=== PATIENT | male | born 1955 | race Caucasian/White ===

== ENCOUNTER 2017-11-13 23:28 | Emergency (ER) | payer MEDICAID ==
--- NOTE | 2017-11-14 00:56 | EDM.PDOC ---
ED HPI GENERAL MEDICAL PROBLEM - General Chief Complaint: Fever Stated Complaint: FEVER Time Seen by Provider: 11/14/17 00:46 Source of Information: Reports: Patient, Family, RN Notes Reviewed History Limitations: Reports: No Limitations - History of Present Illness INITIAL COMMENTS - FREE TEXT/NARRATIVE: 61-year-old gentleman presents emergency department today concern of fever, he was recently diagnosed with Lyme was started on doxycycline however earlier today he had a fever up to 103 by the time he reports to the emergency department his temperature is now 100.4 this after taking some Sarah aspirin he has no other complaints was mainly just concerned - Related Data Allergies Allergy/AdvReac Type Severity Reaction Status Date / Time No Known Allergies Allergy Verified 11/14/17 00:18 Home Meds: Home Meds Doxycycline [Doxycycline Hyclate] 50 mg PO Q12HR 11/14/17 [History] Rivaroxaban [Xarelto] 20 mg PO DAILY 11/14/17 [History] Past Medical History Cardiovascular History: Reports: Blood Clots/VTE/DVT Hematologic History: Reports: Other (See Below) Other Hematologic History: factor 5 - Infectious Disease History Infectious Disease History: Reports: Chicken Pox Social & Family History - Family History Family Medical History: Noncontributory - Tobacco Use Smoking Status *Q: Never Smoker - Caffeine Use Caffeine Use: Reports: None - Recreational Drug Use Recreational Drug Use: No ED ROS GENERAL - Review of Systems Review Of Systems: See Below Constitutional: Reports: Fever HEENT: Reports: No Symptoms Respiratory: Reports: No Symptoms Cardiovascular: Reports: No Symptoms GI/Abdominal: Reports: No Symptoms ED EXAM, GENERAL - Physical Exam Exam: See Below Exam Limited By: No Limitations General Appearance: Alert, WD/WN, No Apparent Distress Respiratory/Chest: No Respiratory Distress Course - Vital Signs Last Recorded V/S: Last Vital Signs Temp 100.4 F 11/14/17 00:20 Pulse 97 11/14/17 00:20 Resp 16 11/14/17 00:20 BP 116/69 11/14/17 00:20 Pulse Ox 94 L 11/14/17 00:20 Departure - Departure Time of Disposition: 00:55 Disposition: Home, Self-Care 01 Condition: Good Clinical Impression: Tick bite Qualifiers: Encounter type: initial encounter Qualified Code(s): W57.XXXA - Bitten or stung by nonvenomous insect and other nonvenomous arthropods, initial encounter - Discharge Information Referrals: Raad Ng Sr, MD [Primary Care Provider] - Additional Instructions: Take all medications prescribed, Please followup with your primary care provider in 3-5 days if not better, please call return to the emergency department with worsening of symptoms. - Assessment/Plan Plan: Assessment Acuity = acute Site and laterality = tick bite Etiology = concern for development of anaplasmosis and/or Lyme disease Manifestations = fever Location of injury = Home Lab values = none Plan Patient fails he may have overreacted by presents emergency department he is asymptomatic he is going to use ibuprofen Control his temperature continue taking his doxycycline and has been prescribed follow-up with primary care as needed This note was dictated using [employer] voice recognition software please call with any questions on syntax or grammar.
== END 2017-11-14 01:11 | disposition home or self-care (01) ==
LOC: JP.ED 23:28
DX: A93.8 Other specified arthropod-borne viral fevers (principal); W57.XXXA Bitten or stung by nonvenomous insect and other nonvenomous arthropods, initial encounter
CPT/HCPCS: 99283

== ENCOUNTER 2019-10-28 15:17 | Emergency (ER) | payer MEDICARE ==
--- NOTE | 2019-10-28 16:15 | EDM.PDOC ---
ED HPI GENERAL MEDICAL PROBLEM - General Chief Complaint: Skin Complaint Stated Complaint: BLISTERS ON THIGH Time Seen by Provider: 10/28/19 16:00 Source of Information: Reports: Patient - History of Present Illness INITIAL COMMENTS - FREE TEXT/NARRATIVE: He has a non-pruritic and non-tender rash on the anterior left thigh for a few days. He had varicella when he was younger. 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 - Related Data Allergies Allergy/AdvReac Type Severity Reaction Status Date / Time No Known Allergies Allergy Verified 10/28/19 15:29 Home Meds: Home Meds Rivaroxaban [Xarelto] 20 mg PO DAILY 11/14/17 [History] Past Medical History Cardiovascular History: Reports: Blood Clots/VTE/DVT, Other (See Below) Other Cardiovascular History: Leiden factor 5 Hematologic History: Reports: Other (See Below) Other Hematologic History: factor 5 - Infectious Disease History Infectious Disease History: Reports: Chicken Pox Social & Family History - Family History Family Medical History: Noncontributory - Tobacco Use Smoking Status *Q: Never Smoker - Caffeine Use Caffeine Use: Reports: None - Recreational Drug Use Recreational Drug Use: No ED ROS GENERAL - Review of Systems Review Of Systems: See Below Constitutional: Reports: Fatigue HEENT: Reports: No Symptoms Respiratory: Reports: No Symptoms Cardiovascular: Reports: No Symptoms GI/Abdominal: Reports: No Symptoms Skin: Reports: Rash Neurological: Reports: No Symptoms Psychiatric: Reports: No Symptoms Immunologic: Reports: No Symptoms ED EXAM, SKIN/RASH Exam: See Below Exam Limited By: No Limitations General Appearance: Alert, WD/WN, No Apparent Distress Skin: Zoster-Like Rash, Other (macular papular patches on the left gail- medial thigh. Has some blisters/bullae, no cellulitis. ) Course - Vital Signs Text/Narrative:: He has shingles and was given an Rx for Valtrex. He will follow up with his doctor as needed. Last Recorded V/S: Last Vital Signs Temp 36.1 C 10/28/19 15:33 Pulse 79 10/28/19 15:33 Resp 16 10/28/19 15:33 BP 121/72 10/28/19 15:33 Pulse Ox 97 10/28/19 15:33 Departure - Departure Time of Disposition: 16:10 Disposition: Home, Self-Care 01 Condition: Good Clinical Impression: Shingles - Discharge Information *PRESCRIPTION DRUG MONITORING PROGRAM REVIEWED*: No *COPY OF PRESCRIPTION DRUG MONITORING REPORT IN PATIENT DANIEL: No Referrals: Raad Ng Sr, MD [Primary Care Provider] - Additional Instructions: Get Dome Urmila packs from the pharmacy if your rash becomes weepy, otherwise apply bacitracin or Vaseline to rash to prevent rubbing against clothing. Take Valtrex as prescribed and follow up with your doctor as needed. Sepsis Event Note (ED) - Evaluation Sepsis Screening Result: No Definite Risk - Focused Exam Vital Signs: Vital Signs Temp Pulse Resp BP Pulse Ox 10/28/19 15:33 36.1 C 79 16 121/72 97 10/28/19 15:27 36.1 C 79 16 121/72 97
== END 2019-10-28 16:17 | disposition home or self-care (01) ==
LOC: JP.ED 15:17
DX: B02.9 Zoster without complications (principal); Z79.01 Long term (current) use of anticoagulants
CPT/HCPCS: 99282; 99283

== ENCOUNTER 2025-02-17 17:03 | Emergency (ER) | payer MEDICARE | END 2025-02-17 18:45 | disposition home or self-care (01) | LOC: JP.ED 17:03 | DX: L50.9 Urticaria, unspecified (principal); Z79.899 Other long term (current) drug therapy | CPT/HCPCS: 99282; 99283 ==